=== PATIENT | male | born 1995 | race African-American/Black ===

== ENCOUNTER 2021-02-19 02:14 | Emergency (ER) | payer MEDICAID ==
[~2021-02-19] VITALS: Ht 175.3 cm; Wt 84.0 kg
[2021-02-19] MEDS ORDERED: ACETAMINOPHEN WITH CODEINE 300/30MG TABLET PO ONE (02:45)
[2021-02-19] MEDS ORDERED: LIDOCAINE HCL/EPINEPHRINE 1%-EPI 1:100,000 10 ML VIAL IJ ONE (05:45)
[2021-02-19] MEDS ORDERED: TETANUS, DIPHTHERIA, PERTUSSIS VAC/PF 0.5ML (>7YR OLD) IM ONE (05:45)
[2021-02-19] MEDS ORDERED: BACITRACIN ZINC OINT UDPKT TOP ONE (05:45)
[2021-02-19] MEDS ORDERED: LIDOCAINE HCL/EPINEPHRINE 1%-EPI 1:100,000 20 ML VIAL INFIL ONE (06:30)
[2021-02-19] MEDS ORDERED: AMOX-424 MT (06:49)
[2021-02-19] MEDS ORDERED: NAPR-681 MT (06:49)
[2021-02-19] MEDS ORDERED: T3 PO (06:49)
[2021-02-19 07:44] VITALS: BP 160/94
== END 2021-02-19 07:45 | disposition home or self-care (01) ==
LOC: ER 03:17
DX: S06.0X0A Concussion without loss of consciousness, initial encounter (principal); S02.2XXA Fracture of nasal bones, initial encounter for closed fracture; Y08.89XA Assault by other specified means, initial encounter; Y93.89 Activity, other specified; Y92.89 Other specified places as the place of occurrence of the external cause; Y99.8 Other external cause status; Z79.899 Other long term (current) drug therapy
CPT/HCPCS: 70486; 71250; 73080; 73090; 73120; 90471; 90715; 99285; J3490

== ENCOUNTER 2021-02-22 16:09 | Emergency (ER) | payer MEDICAID ==
[~2021-02-22] VITALS: Ht 177.8 cm; Wt 91.0 kg
[~2021-02-22 16:09] MED LIST: AMOX-424 MT; NAPR-681 MT; T3 PO
[2021-02-22 17:04] VITALS: BP 150/72
== END 2021-02-22 17:37 | disposition home or self-care (01) ==
LOC: ER 16:09
DX: Z48.00 Encounter for change or removal of nonsurgical wound dressing (principal)
CPT/HCPCS: 99281

== ENCOUNTER 2021-03-04 09:37 | Emergency (ER) | payer MEDICAID ==
[~2021-03-04] VITALS: Ht 175.3 cm; Wt 90.0 kg
[2021-03-04] MEDS ORDERED: TETRACAINE 0.5% OPHTH DROPS 4ML LEFTEYE ONE (10:15)
[2021-03-04] MEDS ORDERED: FLUORESCEIN SODIUM 1MG/STRIP LEFTEYE ONE (10:15)
[2021-03-04] MEDS ORDERED: POLY10DR LEFTEYE (11:01)
[2021-03-04 11:12] VITALS: BP 146/73
== END 2021-03-04 11:13 | disposition home or self-care (01) ==
LOC: ER 10:27
DX: H10.022 Other mucopurulent conjunctivitis, left eye (principal); Z48.02 Encounter for removal of sutures
CPT/HCPCS: 99283

== ENCOUNTER 2022-02-17 14:20 | Emergency (ER) | payer MEDICAID ==
[~2022-02-17] VITALS: Ht 175.3 cm; Wt 73.0 kg
[~2022-02-17 14:20] MED LIST changes: +POLY10DR LEFTEYE
[2022-02-17 14:58] VITALS: BP 114/84
[2022-02-17] MEDS ORDERED: LIDOCAINE HCL/PF 1% 10 MG/ML 5ML VIAL INFIL ONE (15:15)
[2022-02-17] MEDS ORDERED: BACITRACIN ZINC OINT UDPKT TOP ONE (15:15)
[2022-02-17] MEDS ORDERED: TETANUS, DIPHTHERIA, PERTUSSIS VAC/PF 0.5ML (>10YR OLD) IM ONE (19:00)
== END 2022-02-18 04:30 | disposition home or self-care (01) ==
LOC: ER 14:20
DX: S61.411A Laceration without foreign body of right hand, initial encounter (principal); W25.XXXA Contact with sharp glass, initial encounter; Y93.89 Activity, other specified; Y92.018 Other place in single-family (private) house as the place of occurrence of the external cause
CPT/HCPCS: 73130; 99283

== ENCOUNTER 2022-08-22 22:17 | Emergency (ER) | payer MEDICAID | END 2022-08-23 00:41 | disposition left against medical advice (07) | LOC: ER 22:17 | DX: Z53.21 Procedure and treatment not carried out due to patient leaving prior to being seen by health care provider (principal) ==

== ENCOUNTER 2022-08-24 19:46 | Emergency (ER) | payer MEDICAID ==
[~2022-08-24] VITALS: Ht 175.3 cm; Wt 95.3 kg
[2022-08-25 04:13] VITALS: BP 127/89
[2022-08-25] MEDS ORDERED: IBUPROFEN 400MG TABLET PO ONE (06:00)
[2022-08-25] MEDS ORDERED: METH-653 MT (08:20)
[2022-08-25] MEDS ORDERED: IBUP-2028 MT (08:20)
== END 2022-08-25 08:42 | disposition home or self-care (01) ==
LOC: ER 19:46
DX: R07.81 Pleurodynia (principal); G89.11 Acute pain due to trauma; R03.0 Elevated blood-pressure reading, without diagnosis of hypertension; V23.49XA Other motorcycle driver injured in collision with car, pick-up truck or van in traffic accident, initial encounter; Y93.I9 Activity, other involving external motion; Y92.488 Other paved roadways as the place of occurrence of the external cause
CPT/HCPCS: 71101; 99283